=== PATIENT | female | born 1965 | race Caucasian/White ===

== ENCOUNTER 2017-04-28 09:50 | Emergency (ER) | payer OTHER ==
[~2017-04-28] VITALS: Ht 162.6 cm; Wt 82.0 kg
[2017-04-28] MEDS ORDERED: KETOROLAC 15MG/ML VIAL IV ONE (11:15)
[2017-04-28] MEDS ORDERED: ACETAMINOPHEN 500MG TABLET PO ONE (11:15)
[2017-04-28] MEDS ORDERED: CYCLOBENZAPRINE 10MG TABLET PO ONE (11:15)
[2017-04-28] MEDS ORDERED: ONDANSETRON HCL 4MG/2ML VIAL IV ONE (12:00)
[2017-04-28] MEDS ORDERED: MORPHINE SULFATE 4 MG/ML CPJ (NOT FOR IM USE) IV ONE (12:00)
[2017-04-28 12:22] VITALS: BP 139/84
== END 2017-04-28 14:50 | disposition home or self-care (01) ==
LOC: ER 10:18
DX: M54.40 Lumbago with sciatica, unspecified side (principal); G89.29 Other chronic pain
CPT/HCPCS: 96374; 96375; 99284; J1885; J2270; J2405